=== PATIENT | male | born 1970 | race Caucasian/White ===

== ENCOUNTER 2016-11-18 10:30 | Day surgery (SDC) | payer BC ==
--- NOTE | ~2016-11-18 | EGD ---
EGD REPORT [facility] [address] [address] NAME: ROSENDA BOX : [birth year] STATUS : REG [facility] [place] PAT#: [id number] AGE: 46 ADM/REG DATE : 11/18/16 MR#: [id number] REPORT SERV DATE: 11/18/16 DICTATED BY: RASHEED GARCIA DATE: 11/18/16 REPORT STATUS : Draft TRANSCRIBED BY: [employer] DATE: 11/18/16 Endoscopy Center Patient Name: Rosenda Box Date of : 1970 Attending MD: RASHEED GARCIA, Procedure Date No Time: 11/18/2016 Procedure: Colonoscopy Indications: Hematochezia Referring MD: TITUS VEGA MD Medicines: Monitored Anesthesia Care Complications: No immediate complications. Estimated blood loss: None. Procedure: Pre-Anesthesia Assessment: - ASA Grade Assessment: III - A patient with severe systemic disease. After I obtained informed consent, the scope was passed under direct vision. Throughout the procedure, the patient's blood pressure, pulse, and oxygen saturations were monitored continuously. The CF [id number] was introduced through the anus and advanced to the cecum, identified by appendiceal orifice and ileocecal valve. The colonoscopy was performed without difficulty. The patient tolerated the procedure well. The quality of the bowel preparation was good. Findings: The perianal and digital rectal examinations were normal. A sessile polyp was found in the ascending colon. The polyp was 5 mm in size. The polyp was removed with a cold snare. Resection and retrieval were complete. Verification of patient identification for the specimen was done. Estimated blood loss was minimal. A sessile polyp was found in the cecum. The polyp was 2 mm in size. The polyp was removed with a cold biopsy forceps. Resection and retrieval were complete. Verification of patient identification for the specimen was done. Estimated blood loss was minimal. Three sessile polyps were found in the descending colon. The polyps were 1 to 2 mm in size. These polyps were removed with a cold biopsy forceps. Resection and retrieval were complete. Verification of patient identification for the specimen was done. Estimated blood loss was minimal. Internal hemorrhoids were found during retroflexion and were Grade I (internal hemorrhoids that do not prolapse). The exam was otherwise without abnormality on direct and retroflexion views. Impression: - One 5 mm polyp in the ascending colon. Resected and EGD REPORT [address] [place]. [address] NAME: ROSENDA BOX : [birth year] STATUS : REG [facility] [place] PAT#: [id number] AGE: 46 ADM/REG DATE : 11/18/16 MR#: [id number] REPORT SERV DATE: 11/18/16 DICTATED BY: RASHEED GARCIA DATE: 11/18/16 REPORT STATUS : Draft TRANSCRIBED BY: [email or web address] DATE: 11/18/16 retrieved. - One 2 mm polyp in the cecum. Resected and retrieved. - Three 1 to 2 mm polyps in the descending colon. Resected and retrieved. - Internal hemorrhoids. - The examination was otherwise normal on direct and retroflexion views. Recommendation: - Patient has a contact number available for emergencies. The signs and symptoms of potential delayed complications were discussed with the patient. Return to normal activities tomorrow. Written discharge instructions were provided to the patient. - Return to previous diet. - Await pathology results. - Repeat colonoscopy for surveillance based on pathology results. Procedure Code(s): --- Professional --- 26364, Colonoscopy, flexible, proximal to splenic flexure; with removal of tumor(s), polyp(s), or other lesion(s) by snare technique 53829, 59, Colonoscopy, flexible, proximal to splenic flexure; with biopsy, single or multiple Diagnosis Code(s): --- Professional --- D12.4, Benign neoplasm of descending colon D12.0, Benign neoplasm of cecum D12.2, Benign neoplasm of ascending colon K64.0, First degree hemorrhoids K92.1, Melena CPT copyright 2013 [employer]. All rights reserved. The codes documented in this report are preliminary and upon lock and dam equipment repairer review may be revised to meet current compliance requirements. RASHEED GARCIA, 11/18/2016 1:46 PM Number of Addenda: 0 Note Initiated On: 11/18/2016 1:06 PM Scope Withdrawal Time 0 hours 0 minutes 0 seconds [address] [id number]
--- NOTE | ~2016-11-18 | EGD ---
EGD REPORT [facility] [address] [address] NAME: ROSENDA BOX : [birth year] STATUS : REG [facility] [place] PAT#: [id number] AGE: 46 ADM/REG DATE : 11/18/16 MR#: [id number] REPORT SERV DATE: 11/18/16 DICTATED BY: RASHEED GARCIA DATE: 11/18/16 REPORT STATUS : Draft TRANSCRIBED BY: [facility] DATE: 11/18/16 Endoscopy Center Patient Name: Rosenda Box Date of : 1970 Attending MD: RASHEED GARCIA, Procedure Date No Time: 11/18/2016 Procedure: Upper GI endoscopy Indications: Abdominal bloating. Rectal bleeding Referring MD: TITUS VEGA MD Medicines: Monitored Anesthesia Care Complications: No immediate complications. Estimated blood loss: None. Procedure: Pre-Anesthesia Assessment: - ASA Grade Assessment: III - A patient with severe systemic disease. After obtaining informed consent, the endoscope was passed under direct vision. Throughout the procedure, the patient's blood pressure, pulse, and oxygen saturations were monitored continuously. The GIF [id number] was introduced through the mouth, and advanced to the second part of duodenum. The upper GI endoscopy was accomplished without difficulty. The patient tolerated the procedure well. Findings: The esophagus was normal. The entire examined stomach was normal. Biopsies were taken with a cold forceps for histology. Verification of patient identification for the specimen was done. Estimated blood loss was minimal. The cardia and gastric fundus were normal on retroflexion. The examined duodenum was normal. Multiple biopsies were obtained in the 2nd part of the duodenum with cold forceps for histology. Impression: - Normal esophagus. - Normal stomach. Biopsied. - Normal examined duodenum. - Multiple biopsies were obtained in the 2nd part of the duodenum. Recommendation: - Return to previous diet. - Continue present medications. - Await pathology results. Procedure Code(s): --- Professional --- 44321, Esophagogastroduodenoscopy, flexible, transoral; with biopsy, single or multiple EGD REPORT [place] [address] [address] [facility] [address] [address] NAME: ROSENDA BOX : [birth year] STATUS : REG [facility]#: [id number] AGE: 46 ADM/REG DATE : 11/18/16 MR#: [id number] REPORT SERV DATE: 11/18/16 DICTATED BY: RASHEED GARCIA DATE: 11/18/16 REPORT STATUS : Draft TRANSCRIBED BY: [employer] DATE: 11/18/16 Diagnosis Code(s): --- Professional --- R14.0, Abdominal distension (gaseous) CPT copyright 2013 [employer]. All rights reserved. The codes documented in this report are preliminary and upon remote encoding operations supervisor review may be revised to meet current compliance requirements. RASHEED GARCIA, 11/18/2016 1:44 PM Number of Addenda: 0 Note Initiated On: 11/18/2016 1:06 PM Scope Withdrawal Time 0 hours 0 minutes 0 seconds [address] [place] [address]
[~2016-11-18 10:30] MED LIST: ACET500CAP PO; ADVIL PO; ASA5GR PO; ASAB; ASAB PO; ASABAYER PO; BRILINTA90 MG PO; CENTRUM TAB1 TAB PO; COREG6 PO; ISOSORB DIN30 MG PO; LOP50 PO; LOPRESS HC100 MG/25 PO; NITROSTAT0.4 MG SL; PRAVACHOL40 MG PO; PRILO PO; PRILOSEC OTC20 MG PO; PRIN10 PO; PRIN5 PO
== END 2016-11-18 23:59 | disposition home health service (06) ==
LOC: DMU 10:30
PROVIDERS: Internal Medicine Gastroenterology
PROC: 0DB98ZX Excision of Duodenum, Via Natural or Artificial Opening Endoscopic, Diagnostic (ICD-10-PCS; 2016-11-18)
PROC: 0DB68ZX Excision of Stomach, Via Natural or Artificial Opening Endoscopic, Diagnostic (ICD-10-PCS; 2016-11-18)
PROC: 0DBK8ZZ Excision of Ascending Colon, Via Natural or Artificial Opening Endoscopic (ICD-10-PCS; principal; 2016-11-18 13:13)
PROC: 0DBH8ZX Excision of Cecum, Via Natural or Artificial Opening Endoscopic, Diagnostic (ICD-10-PCS; 2016-11-18 13:13)
PROC: 0DBM8ZX Excision of Descending Colon, Via Natural or Artificial Opening Endoscopic, Diagnostic (ICD-10-PCS; 2016-11-18 13:13)
DX: D12.2 Benign neoplasm of ascending colon (principal); D12.4 Benign neoplasm of descending colon; K63.5 Polyp of colon; K64.0 First degree hemorrhoids; K29.50 Unspecified chronic gastritis without bleeding; Z90.49 Acquired absence of other specified parts of digestive tract; Z98.890 Other specified postprocedural states; Z79.82 Long term (current) use of aspirin; Z79.899 Other long term (current) drug therapy
CPT/HCPCS: 88305